=== PATIENT | male | born 1965 | race Hispanic/Latino ===

== ENCOUNTER 2019-03-23 20:27 | Emergency (ER) | payer BC ==
--- NOTE | 2019-03-23 21:06 | Emergency Department Report ---
Blank Doc - Documentation Documentation: 53-year-old male that presents with abdominal pain with n/v. This initial assessment/diagnostic orders/clinical plan/treatment(s) is/are subject to change based on patient's health status, clinical progression and re- assessment by fellow clinical providers in the ED. Further treatment and workup at subsequent clinical providers discretion. Patient/guardians urged not to elope from the ED as their condition may be serious if not clinically assessed and managed. Initial orders include: 1- Patient sent to [facility] for further evaluation and treatment 2- labs 3- UA
[2019-03-23 21:53] LABS: Basophils % (Auto) 0.7 % (0.0-1.8); Eosinophils # (Auto) 0.1 K/mm3 (0.0-0.4); Eosinophils % (Auto) 1.4 % (0.0-4.3); Hemoglobin 11.5 gm/dl (11.8-15.2); Lymphocytes # (Auto) 1.8 K/mm3 (1.2-5.4); Lymphocytes % (Auto) 28.3 % (13.4-35.0); Mean Corpuscular HGB Conc 33 % (32-34); Mean Corpuscular Volume 78 fl (84-94); Monocytes # (Auto) 0.4 K/mm3 (0.0-0.8); Platelet Count 294 K/mm3 (140-440); Red Blood Count 4.49 M/mm3 (3.65-5.03); Red Cell Distribution Width 19.3 % (13.2-15.2)
[2019-03-23 22:06] LABS: Monocytes % (Auto) 6.7 % (0.0-7.3)
[2019-03-23] MEDS ORDERED: MORPHINE 4 MG/1 ML INJ IV ONE (22:06)
[2019-03-23] MEDS ORDERED: ONDANSETRON 4 MG/2 ML INJ IV ONE (22:06)
[2019-03-23] MEDS ORDERED: SODIUM CHLORIDE 0.9% 1000 ML 1,000 ML IV ONE (22:06)
[2019-03-23 22:08] LABS: Alanine Aminotransferase 22 units/L (7-56); Albumin 4.2 g/dL (3.9-5); BUN/Creatinine Ratio 9; Blood Urea Nitrogen 7 mg/dL (9-20); Calcium 8.5 mg/dL (8.4-10.2); Hemolysis Index 11
[2019-03-23 23:05] LABS: Bilirubin,Urine NEG (Negative); Blood,Urine NEG (Negative); Color,Urine Yellow (Yellow); Mucus,Urine FEW /HPF; Protein,Urine <15 mg/dL mg/dL (Negative); Urobilinogen,Urine < 2.0 mg/dL (<2.0)
--- NOTE | 2019-03-23 23:24 | Emergency Department Report ---
ED Abdominal Pain HPI - General Chief Complaint: Abdominal Pain Stated Complaint: ABDOMINAL PAIN, DIFF BREATHING Time Seen by Provider: 03/23/19 21:05 Source: patient, EMS Mode of arrival: Ambulatory Limitations: No Limitations - History of Present Illness Initial Comments: Mr. Rausch is s 53 y/o w/m with hx or crohns who presents with abdominal pain with n/v x 3 days. Pain is 8/10 LUQ. symptoms excerbated by movement and eating, pain relieved by nothing tried, pt is currently tx with Omeprozale, Eliquis RLE DVT. pt denies sob, no back , no cp , no dizziness, no light headedness. MD Complaint: abdominal pain Onset/Timin -: days(s) Location: LUQ Radiation: LLQ Migration to: LLQ Severity: moderate Severity scale (0 -10): 8 Quality: sharp Consistency: constant Improves With: nothing Worsens With: eating Associated Symptoms: nausea, vomiting. denies: diarrhea, constipation, dysuria, melena - Related Data Home Medications Medication Instructions Recorded Confirmed Last Taken Ranitidine (Nf) [Zantac (Nf)] 150 mg PO BID 11/15/13 11/15/13 11/14/13 Previous Rx's Medication Instructions Recorded Last Taken Type Folic Acid [Folvite] 1 mg PO QDAY #30 tablet 11/15/13 Unknown Rx Multivitamin Tab [Multiple Vitamin 1 each PO ONCE #30 tablet 11/15/13 Unknown Rx TAB (Theragran)] Thiamine [Vitamin B-1] 100 mg PO ONCE #30 tablet 11/15/13 Unknown Rx Acetaminophen [Acetaminophen TAB] 1,000 mg PO Q6HR PRN #30 tablet 03/24/19 Unknown Rx Dicyclomine [Bentyl] 10 mg PO QID PRN #30 capsule 03/24/19 Unknown Rx Ondansetron [Zofran Odt] 4 mg PO Q8HR PRN #12 tab.rapdis 03/24/19 Unknown Rx Allergies Allergy/AdvReac Type Severity Reaction Status Date / Time NSAIDS (Non-Steroidal Allergy Bleeding Verified 11/15/13 01:22 Anti-Inflamma ED Review of Systems ROS: Stated complaint: ABDOMINAL PAIN, DIFF BREATHING Other details as noted in HPI Constitutional: denies: chills, fever Eyes: denies: eye pain, eye discharge, vision change ENT: denies: ear pain, throat pain Respiratory: denies: cough, shortness of breath, wheezing Cardiovascular: denies: chest pain, palpitations Gastrointestinal: abdominal pain, nausea, vomiting. denies: diarrhea, constipation, hematemesis, melena, hematochezia Genitourinary: denies: urgency, dysuria, frequency, hematuria, discharge Musculoskeletal: denies: back pain, joint swelling, arthralgia Skin: denies: rash, lesions Neurological: denies: headache, weakness, paresthesias Psychiatric: denies: anxiety, depression Hematological/Lymphatic: denies: easy bleeding, easy bruising ED Past Medical Hx - Past Medical History Previous Medical History?: Yes Additional medical history: Crohns disease,DJD, RIGHT DVT,PE - Surgical History Past Surgical History?: Yes Additional Surgical History: RIGHT HIP - Social History Smoking Status: Current Every Day Smoker Substance Use Type: Alcohol - Medications Home Medications: Home Medications Medication Instructions Recorded Confirmed Last Taken Type Folic Acid [Folvite] 1 mg PO QDAY #30 tablet 11/15/13 Unknown Rx Multivitamin Tab [Multiple Vitamin 1 each PO ONCE #30 tablet 11/15/13 Unknown Rx TAB (Theragran)] Ranitidine (Nf) [Zantac (Nf)] 150 mg PO BID 11/15/13 11/15/13 11/14/13 History Thiamine [Vitamin B-1] 100 mg PO ONCE #30 tablet 11/15/13 Unknown Rx Acetaminophen [Acetaminophen TAB] 1,000 mg PO Q6HR PRN #30 tablet 03/24/19 Unknown Rx Dicyclomine [Bentyl] 10 mg PO QID PRN #30 capsule 03/24/19 Unknown Rx Ondansetron [Zofran Odt] 4 mg PO Q8HR PRN #12 tab.rapdis 03/24/19 Unknown Rx ED Physical Exam - General Limitations: No Limitations General appearance: alert, in no apparent distress - Head Head exam: Present: atraumatic, normocephalic - Eye Eye exam: Present: normal appearance, PERRL, EOMI Pupils: Present: normal accommodation - ENT ENT exam: Present: mucous membranes moist - Neck Neck exam: Present: normal inspection, full ROM. Absent: tenderness - Respiratory Respiratory exam: Present: normal lung sounds bilaterally. Absent: respiratory distress, wheezes, chest wall tenderness - Cardiovascular Cardiovascular Exam: Present: regular rate, normal rhythm, normal heart sounds. Absent: systolic murmur, diastolic murmur, rubs, gallop - GI/Abdominal GI/Abdominal exam: Present: soft, tenderness (LUQ, RUQ ), normal bowel sounds, hernia (peiumbilcal hernia no thrill, no erythema no reducible ). Absent: guarding, rebound, rigid, bruit - Rectal Rectal exam: Present: deferred - Extremities Exam Extremities exam: Present: normal inspection, full ROM, normal capillary refill. Absent: tenderness - Back Exam Back exam: Present: normal inspection, full ROM. Absent: tenderness, CVA tenderness (R), CVA tenderness (L), muscle spasm, vertebral tenderness - Neurological Exam Neurological exam: Present: alert, oriented X3, CN II-XII intact, normal gait - Psychiatric Psychiatric exam: Present: normal affect, normal mood - Skin Skin exam: Present: warm, dry, intact, normal color. Absent: rash ED Course Vital Signs 03/23/19 03/23/19 03/23/19 20:33 21:05 22:27 Temperature 98.1 F 98.1 F Pulse Rate 98 H 96 H Respiratory 18 18 18 Rate Blood Pressure 141/83 141/83 Blood Pressure [Left] O2 Sat by Pulse 98 98 Oximetry 03/23/19 03/24/19 03/24/19 22:57 00:41 01:00 Temperature Pulse Rate 89 Respiratory 18 18 18 Rate Blood Pressure Blood Pressure 159/91 [Left] O2 Sat by Pulse 96 Oximetry ED Medical Decision Making - Lab Data Result diagrams: 03/23/19 21:23 03/23/19 21:23 Labs 03/23/19 03/23/19 03/23/19 21:23 21:23 Unknown WBC 6.5 RBC 4.49 Hgb 11.5 L Hct 35.0 L MCV 78 L MCH 26 L MCHC 33 RDW 19.3 H Plt Count 294 Lymph % (Auto) 28.3 [place] % (Auto) 6.7 Eos % (Auto) 1.4 Baso % (Auto) 0.7 Lymph # 1.8 [place] # 0.4 Eos # 0.1 Baso # 0.0 Seg Neutrophils % 62.9 Seg Neutrophils # 4.1 Sodium 140 Potassium 3.1 L Chloride 102.3 Carbon Dioxide 20 L Anion Gap 21 BUN 7 L Creatinine 0.8 Estimated GFR > 60 BUN/Creatinine Ratio 9 Glucose 103 H Calcium 8.5 Total Bilirubin 0.30 AST 19 ALT 22 Alkaline Phosphatase 83 Total Protein 7.1 Albumin 4.2 Albumin/Globulin Ratio 1.4 Lipase 37 Urine Color Yellow Urine Turbidity Clear Urine pH 5.0 Ur Specific [place] 1.015 Urine Protein <15 mg/dl Urine Glucose (UA) Neg Urine Ketones Tr Urine Blood Neg Urine Nitrite Neg Urine Bilirubin Neg Urine Urobilinogen < 2.0 Ur Leukocyte Esterase Neg Urine WBC (Auto) 1.0 Urine RBC (Auto) 1.0 U Epithel Cells (Auto) < 1.0 Urine Mucus Few - Radiology Data Radiology results: report reviewed, image reviewed Ordering Physician: GAVIN NAVARRO NP Date of Service: 03/23/19 Procedure(s): CT abdomen pelvis w con Accession Number(s): [id number] cc: GAVIN NAVARRO NP CT abdomen pelvis w con INDICATION: Nausea, vomiting, abdominal pain. TECHNIQUE: All CT scans at this location are performed using the following dose modulation technique: Automated exposure control. Helical slices were obtained through the abdomen and pelvis. 100 cc of Omnipaque 300 is administered. COMPARISON: None available. FINDINGS: Abdomen: No acute abnormality is seen in the lower chest. There is fatty infiltration of the liver. There are few small hypodensities in the liver which are too small to characterize. There is a 1.8 cm cyst in the caudate lobe. The spleen, pancreas, adrenal glands, and small bowel show no acute abnormality. There are small hypodensities in the kidneys which are too small to characterize but likely represent cysts. There is no hydronephrosis. There is no obstruction, inflammation, or free air. The appendix is unremarkable. Pelvis: There is no inflammatory change. There are no abnormal fluid octavio ections. There is no adenopathy. There is superior endplate compression of L1 which appears to be chronic. IMPRESSION: 1. There is no obstruction, inflammation, or free air. There are no abnormal fl uid collections. Signer Name: Narayan Redding MD Signed: 03/24/2019 12:48 AM Workstation Name: [id number] Transcribed By: Dictated By: Narayan Redding MD Electronically Authenticated By: Narayan Redding MD Signed Date/Time: 03/24/1945 DD/ TD/TT: - Medical Decision Making CT abdomen and pelvis with contrast again confirms fatty liver disease, there is no Crohn's flare, there is no obstruction, no bleed, no renal stones, no gallstones, patient is now tolerating by mouth intake without nausea vomiting. I have discussed her to PM overload patient advised him that he does get all narcotics from the same pcp or pain management doctor. We'll DC to home with a prescription for Bentyl. Naproxen, Zofran , patient will follow with gastro enterology patient verbalized agreement and understanding of discharge plan will be DC'd home in stable condition at this time. Critical care attestation.: If time is entered above; I have spent that time in minutes in the direct care of this critically ill patient, excluding procedure time. ED Disposition Clinical Impression: Abdominal pain Qualifiers: Abdominal location: left upper quadrant Qualified Code(s): R10.12 - Left upper quadrant pain Nausea and vomiting Qualifiers: Vomiting type: unspecified Vomiting Intractability: non-intractable Qualified Code(s): R11.2 - Nausea with vomiting, unspecified Disposition: DC-01 TO HOME OR SELFCARE Is pt being admited?: No Does the pt Need Aspirin: No Condition: Stable Instructions: Abdominal Pain (ED), Chronic Pain (ED) Prescriptions: Acetaminophen [Acetaminophen TAB] 1,000 mg PO Q6HR PRN #30 tablet PRN Reason: pain Dicyclomine [Bentyl] 10 mg PO QID PRN #30 capsule PRN Reason: abdominal spasm Ondansetron [Zofran Odt] 4 mg PO Q8HR PRN #12 tab.rapdis PRN Reason: Nausea And Vomiting Referrals: [facility] [Provider Group] - 3-5 Days Forms: Work/School Release Form(ED) Time of Disposition: 02:12
[2019-03-24] MEDS ORDERED: ONDANSETRON 4 MG/2 ML INJ IV ONE (00:11)
[2019-03-24] MEDS ORDERED: HYDROmorphone 1 MG/1 ML INJ IV ONE (00:11)
[2019-03-24] MEDS ORDERED: ONDANSETRON 4 MG/2 ML INJ ONE (00:11)
[2019-03-24] MEDS ORDERED: HYDROmorphone 1 MG/1 ML INJ ONE (00:11)
--- NOTE | 2019-03-24 00:53 | Cat Scan Report ---
CT abdomen pelvis w con INDICATION: Nausea, vomiting, abdominal pain. TECHNIQUE: All CT scans at this location are performed using the following dose modulation technique: Automated exposure control. Helical slices were obtained through the abdomen and pelvis. 100 cc of Omnipaque 30 0 is administered. COMPARISON: None available. FINDINGS: Abdomen: No acute abnormality is seen in the lower chest. There is fatty infiltration of the liver. There are few small hypodensities in the liver which are to o small to characterize. There is a 1.8 cm cyst in the caudate lobe. The spleen, pancreas, adrenal gl ands, and small bowel show no acute abnormality. There are small hypodensities in the kidneys which a re too small to characterize but likely represent cysts. There is no hydronephrosis. There is no obstruction, inflammation, or free air. The appendix is unremarkable. Pelvis: There is no inflammatory change. There are no abnormal fluid collections. There is no adenopa thy. There is superior endplate compression of L1 which appears to be chronic. IMPRESSION: 1. There is no obstruction, inflammation, or free air. There are no abnormal fluid collections. Signer Name: Narayan Redding MD Signed: 03/24/2019 12:48 AM Workstation Name: [id number]
[2019-03-24 01:21] VITALS: BP 159/91
== END 2019-03-24 02:20 | disposition home or self-care (01) ==
LOC: ED 20:27
DX: R10.12 Left upper quadrant pain (principal); R11.2 Nausea with vomiting, unspecified; F17.200 Nicotine dependence, unspecified, uncomplicated; K50.90 Crohn's disease, unspecified, without complications; Z79.899 Other long term (current) drug therapy; Z88.8 Allergy status to other drugs, medicaments and biological substances
CPT/HCPCS: 36415; 74177; 80053; 81001; 83690; 85025; 96361; 96374; 96375; 96376; 99284; J1170; J2270; J2405; J7030; Q9967